=== PATIENT | female | born 1930 | race African-American/Black ===

== ENCOUNTER 2017-02-02 18:16 | Inpatient (IN) | payer OTHER, MEDICARE ==
[~2017-02-02] VITALS: Ht 162.6 cm; Wt 102.0 kg
[2017-02-02 18:20] VITALS: PULSE 96; RESP 20; TEMP 98; O2SAT 95
[2017-02-02 18:28] VITALS: O2SAT 95
[2017-02-02 18:29] VITALS: BP 137/67; PULSE 97
[2017-02-02] MEDS ORDERED: TETANUS/DIPHTHERIA TOXOID ADULT 0.5 ML VIAL IM ONE (18:30)
[2017-02-02] MEDS ORDERED: SODIUM CHLORIDE 0.9% FLUSH 5 ML FLUSH IVF PRN ×2 (18:30→21:00)
--- NOTE | 2017-02-02 18:45 | PD ---
HPI Chief Complaint: Diabetic Time Seen by Provider: 18:24 Travel History International Travel<30 days: No Contact w/Intl Traveler<30days: No Traveled to known affect area: No History of Present Illness HPI The patient is a 86-year-old female who presents to the emergency department via EMS after being found on the floor with right sided weakness and low blood sugar. According to EMS the patient was last seen normal last night, was found on the ground by family earlier today. The patient's initial blood glucose was 35, the patient was administered glucose and her blood sugar improved. However, the patient continued right sided weakness. The patient also notes dysarthria, lower lip swelling, difficulties in her right upper extremity, and generalized weakness. The patient does have a history of diabetes but cannot recall her medications. The patient also cannot recall the name of her primary physician. Family at bedside cannot recall the patient's physician or medications, however, they state the patient has no previous history of CVA. They state the patient is normally able to ambulate without difficulty. The patient does complain of right sided weakness as well as lower lip swelling and dysarthria. She denies any chest pain, shortness breath, nausea, vomiting, or abdominal pain. Symptoms are moderate, no known alleviating or exacerbating factors. PFSH Past Medical History Cardiovascular Problems: Yes (HTN) Diabetes: Yes ?: Not Past Surgical History Hysterectomy: Yes Social History Tobacco Use: No Substance Use: No Allergies-Medications (Allergen,Severity, Reaction): Coded Allergies: No Known Allergies (Unverified , 02/02/17) Reported Meds & Prescriptions Reported Meds & Active Scripts Active Active Prescriptions or Reported Medications Unobtainable Review of Systems Except as stated in HPI: all other systems reviewed are Neg General / Constitutional: No: Fever HENT: No: Headaches, Neck Pain Cardiovascular: No: Chest Pain or Discomfort Respiratory: No: Shortness of Breath Gastrointestinal: No: Nausea, Vomiting, Abdominal Pain Musculoskeletal: Positive: Weakness Neurologic: Positive: Weakness, Focal Abnormalities, Slurred Speech, No: Headache, Paresthesia, Sensory Disturbance Physical Exam Narrative GENERAL: Awake, alert, pleasant 86 year-old female appears her stated age is in no acute respiratory distress. SKIN: Abrasions noted to the knees bilateral is well some bruising to the left hand. HEAD: The patient's lower lip is swollen and edematous with superficial abrasions on the inside.. EYES: Pupils equal and round. Pupils are 3 mm bilateral. EOMs are intact. Patient is able to see fingers at a distance of 2 feet. Right subconjunctival hemorrhage noted. ENT: The lower lip is swollen lips of superficial abrasions on the inside. NECK: Trachea midline. No JVD. CARDIOVASCULAR: Regular rate and rhythm. No murmur appreciated. RESPIRATORY: No accessory muscle use. Clear to auscultation. Breath sounds equal bilaterally. GASTROINTESTINAL: Abdomen soft, non-tender, nondistended. Obese, no rebound tenderness. MUSCULOSKELETAL: Abrasions noted over the inferior aspect of the knees bilateral. Bruising noted over the extensor surface of the left hand. NEUROLOGICAL: Awake and alert. Mild facial asymmetry with smiling. Tongue appears to deviate slightly to the left. Patient is unable to raise her right arm, but is able to make a fist with the right hand limited strength. Patient is able to raise her left arm in extension, but is unable to completely extend at the elbow. Patient is able to flex the knees bilaterally, but is unable to lift her legs off of the ground. Sensation is symmetric in the V2 and V3 distribution bilaterally. Sensation is symmetric down the arms and legs bilaterally. Finger to nose with the left is normal, she is unable to raise her right arm to touch her nose. She is unable to raise her legs off of the bed to do heel to mark. She is oriented to person, place, month, and year. PSYCHIATRIC: Appropriate mood and affect; insight and judgment normal. Data Data Last Documented VS Vital Signs Date Time Temp Pulse Resp B/P Pulse Ox O2 Delivery O2 Flow Rate FiO2 02/02/17 19:29 100 19 147/61 97 Room Air 02/02/17 18:20 98.0 Orders Electrocardiogram (02/02/17 18:24) Prothrombin Time / Inr (Pt) (02/02/17 18:24) Act Partial Throm Time (Ptt) (02/02/17 18:24) Complete Blood Count With Diff (02/02/17 18:24) Comprehensive Metabolic Panel (02/02/17 18:24) Creatine Kinase (Cpk) (02/02/17 18:24) Troponin I (02/02/17 18:24) Urinalysis - C+S If Indicated (02/02/17 18:24) Ct Brain W/O Iv Contrast(Rout) (02/02/17 18:24) Chest, Single Ap (02/02/17 18:24) Ecg Monitoring (02/02/17 18:24) Iv Access Insert/Monitor (02/02/17 18:24) Oximetry (02/02/17 18:24) Blood Glucose (02/02/17 18:24) Sodium Chloride 0.9% Flush (Ns Flush) (02/02/17 18:30) Tetanus/Diphtheria Tox Adult (Tetanus/Di (02/02/17 18:30) Sodium Chlorid 0.9% 500 Ml Inj (Ns 500 M (02/02/17 20:15) Aspirin (Aspirin) (02/02/17 20:30) Admit Order (Ed Use Only) (02/02/17 20:39) Labs Laboratory Tests Test 02/02/17 02/02/17 19:06 19:14 White Blood Count 16.0 TH/MM3 Red Blood Count 4.19 MIL/MM3 Hemoglobin 12.0 GM/DL Hematocrit 37.3 % Mean Corpuscular Volume 89.1 FL Mean Corpuscular Hemoglobin 28.7 PG Mean Corpuscular Hemoglobin 32.3 % Concent Red Cell Distribution Width 13.5 % Platelet Count 130 TH/MM3 Mean Platelet Volume 10.2 FL Neutrophils (%) (Auto) % Lymphocytes (%) (Auto) % Monocytes (%) (Auto) % Eosinophils (%) (Auto) % Basophils (%) (Auto) % Neutrophils # (Auto) TH/MM3 Lymphocytes # (Auto) TH/MM3 Monocytes # (Auto) TH/MM3 Eosinophils # (Auto) TH/MM3 Basophils # (Auto) TH/MM3 CBC Comment AUTO DIFF Differential Total Cells 100 Counted Neutrophils % (Manual) 86 % Band Neutrophils % 7 % Lymphocytes % 2 % Monocytes % 4 % Neutrophils # (Manual) 14.9 TH/MM3 Differential Comment FINAL DIFF MANUAL Atypical Lymphocytes % Platelet Estimate LOW Platelet Morphology Comment NORMAL Prothrombin Time 12.4 SEC Prothromb Time International 1.1 RATIO Ratio Activated Partial 20.5 SEC Thromboplast Time Sodium Level 135 MEQ/L Potassium Level 5.4 MEQ/L Chloride Level 98 MEQ/L Carbon Dioxide Level 23.7 MEQ/L Anion Gap 13 MEQ/L Blood Urea Nitrogen 51 MG/DL Creatinine 2.43 MG/DL Estimat Glomerular Filtration 19 ML/MIN Rate Random Glucose 126 MG/DL Calcium Level 8.3 MG/DL Total Bilirubin 1.6 MG/DL Aspartate Amino Transf 468 U/L (AST/SGOT) Alanine Aminotransferase 65 U/L (ALT/SGPT) Alkaline Phosphatase 71 U/L Troponin I 0.13 NG/ML Total Protein 6.6 GM/DL Albumin 3.4 GM/DL Urine Color YELLOW Urine Turbidity HAZY Urine pH 5.5 Urine Specific [place] 1.019 Urine Protein 100 mg/dL Urine Glucose (UA) NEG mg/dL Urine Ketones NEG mg/dL Urine Occult Blood LARGE Urine Nitrite NEG Urine Bilirubin NEG Urine Urobilinogen LESS THAN 2.0 MG/DL Urine Leukocyte Esterase TRACE Urine RBC LESS THAN 1 /hpf Urine WBC 3 /hpf Urine Squamous Epithelial 2 /hpf Cells Urine Transitional Epithelial <1 /hpf Cells Urine Hyaline Casts 2 /lpf Urine Mucus FEW /lpf Microscopic Urinalysis Comment CATH-CULT NOT IND MDM Medical Decision Making Medical Screen Exam Complete: Yes Emergency Medical Condition: Yes Medical Record Reviewed: Yes Interpretation(s) EKG reveals normal sinus rhythm with a rate in 96. Wavy baseline, further analysis unobtainable. Differential Diagnosis Differential diagnoses includes CVA, TIA, intracranial hemorrhage, hypoglycemia , medication side effect, hyponatremia. Narrative Course IV was established, labs are drawn and sent, and the patient was placed on cardiac telemetry monitoring and continuous pulse oximetry monitoring. EKG was ordered and interpreted. Stat CT the brain was ordered. The patient will be kept nothing by mouth and aspirin will be withheld until CT of the brain results are noted. Patient's Accu-Chek was greater than 150 in the emergency department. Tetanus shot was updated. CT the brain was negative. Accu-Chek 1 hour later was 125. The patient is able to awaken, answer questions, but when reevaluated, still unable to raise her right arm. She denies any pain of the right arm. The patient states she has a physician, however, cannot recall the name. Registration has the patient has self day and no physician. Therefore, the on-call medical service will be paged for admission. The patient was administered aspirin in the emergency department. Physician Communication Physician Communication The on-call medical service was paged for admission. I discussed the patient with Dr. Lopez who agrees with admission. Diagnosis Primary Impression: CVA (cerebral vascular accident) Qualified Code: I63.9 - Cerebrovascular accident (CVA), unspecified mechanism Additional Impression: Hypoglycemia Admitting Information Admitting Physician Requests: Admit Scripts Unable to Obtain Active Prescriptions or Reported Meds Condition: Stable Krish Ding MD Feb 02, 2017 18:45
--- NOTE | 2017-02-02 19:07 | RADRPT ---
EXAM DATE/TIME: 02/02/2017 18:41 [facility] COMPARISON: No previous studies available for comparison. INDICATIONS : Chest pain MEDICAL HISTORY : None. SURGICAL HISTORY : None. ENCOUNTER: Initial ACUITY: 1 day PAIN SCORE: Non-responsive. LOCATION: chest FINDINGS: No infiltrate, effusion or pneumothorax demonstrated. Eventration seen right hemidiaphragm. Heart siz e within normal limits. Mild tortuosity seen of the thoracic aorta. CONCLUSION: No evidence of acute cardiopulmonary disease. Andreas Leong MD on February 02, 2017 at 19:05 Board Certified Radiologist. This report was verified electronically.
[2017-02-02 19:22] LABS: HEMATOCRIT 37.3 % (35.0-46.0); MEAN CELL VOLUME 89.1 FL (80.0-100.0); MEAN CORPUSCULAR HEMOGLOBIN 28.7 PG (27.0-34.0); MEAN CORPUSCULAR HGB CONC 32.3 % (32.0-36.0); PLATELET COUNT 130 TH/MM3 (150-450); RED BLOOD COUNT 4.19 MIL/MM3 (4.00-5.30); RED CELL DISTRIBUTION WIDTH 13.5 % (11.6-17.2)
[2017-02-02 19:23] LABS: HEMO FLAGS AUTO DIFF
[2017-02-02 19:29] VITALS: BP 147/61; PULSE 100; RESP 19; O2SAT 97
[2017-02-02 19:41] LABS: APTT (PATIENT) 20.5 SEC (24.3-30.1); INTERNATIONAL NORMALIZED RATIO 1.1 RATIO; PROTHROMBIN TIME - PATIENT 12.4 SEC (9.8-11.6)
[2017-02-02 19:47] LABS: ANION GAP 13 MEQ/L (5-15); AST (GOT) 468 U/L (15-37); BICARBONATE 23.7 MEQ/L (21.0-32.0); BLOOD UREA NITROGEN 51 MG/DL (7-18); CHLORIDE 98 MEQ/L (98-107); GLOMERULAR FILTRATION RATE 19 ML/MIN (>89); POTASSIUM 5.4 MEQ/L (3.5-5.1); SODIUM (NA) 135 MEQ/L (136-145)
--- NOTE | 2017-02-02 19:53 | RADRPT ---
EXAM DATE/TIME: 02/02/2017 19:33 [facility] COMPARISON: No previous studies available for comparison. INDICATIONS : Right arm weakness and left facial droop. RADIATION DOSE: 56.35 CTDIvol (mGy) MEDICAL HISTORY : Hypertension. Diabetes mellitus type 2. SURGICAL HISTORY : None. ENCOUNTER: Initial ACUITY: 1 day PAIN SCALE: 0/10 LOCATION: cranial TECHNIQUE: Multiple contiguous axial images were obtained of the head. Using automated exposure control and adj ustment of the mA and/or kV according to patient size, radiation dose was kept as low as reasonably a chievable to obtain optimal diagnostic quality images. FINDINGS: CEREBRUM: The ventricles are normal for age. No evidence of midline shift, mass lesion, hemorrhage or acute in farction. No extra-axial fluid collections are seen. POSTERIOR FOSSA: The cerebellum and brainstem are intact. The 4th ventricle is midline. The cerebellopontine angle i s unremarkable. EXTRACRANIAL: The visualized portion of the orbits is intact. Torus palatini incidentally noted. Visualized paranas al sinuses and mastoid air cells are clear. SKULL: The calvaria is intact. No evidence of skull fracture. Incidentally seen diffuse hyperostosis. CONCLUSION: No acute intracranial abnormality demonstrated. Andreas Leong MD on February 02, 2017 at 19:51 Board Certified Radiologist. This report was verified electronically.
[2017-02-02 20:02] LABS: BLOOD, URINE LARGE (NEG); GLUCOSE,URINE NEG (NEG); HYALINE CAST, URINE 2 /lpf (RARE); KETONE, URINE NEG (NEG); MUCUS URINE FEW /lpf (OCC); NITRITE,URINE NEG (NEG); PH, URINE 5.5 (5.0-8.5); SQUAMOUS EPITHELIAL CELL URINE 2 /hpf (0-5); TRANSITIONAL EPI CELLS, URINE <1 /hpf; URINE COLOR YELLOW (YELLW/STRAW)
[2017-02-02 20:03] LABS: COMMENT (UR) CATH-CULT NOT IND; CULTURE IF INDICATED CATH CULTURE NOT IND
[2017-02-02 20:14] LABS: ALKALINE PHOSPHATASE 71 U/L (45-117); ALT (GPT) 65 U/L (10-53); TOTAL BILIRUBIN ADULT 1.6 MG/DL (0.2-1.0)
[2017-02-02] MEDS ORDERED: SODIUM CHLORID 0.9% 500 ML INJ 500 ML IV ONE (20:15)
[2017-02-02 20:24] LABS: POLYS (SEG NEUTROPHILS) 86 % (16-70); WBC DIFF SAMPLE 100
[2017-02-02 20:25] LABS: BANDS 7 % (0-6); NEUTROPHIL # MANUAL DIFF 14.9 TH/MM3 (1.8-7.7); PLATELET ESTIMATE SMEAR LOW (NORMAL); PLATELET MORPHOLOGY NORMAL (NORMAL); SCAN/DIFF FINAL DIFF MANUAL
[2017-02-02] MEDS ORDERED: ASPIRIN 325 MG TAB PO ONE (20:30)
[2017-02-02 20:47] LABS: CREATINE KINASE 19800 U/L (26-192)
[2017-02-02] MEDS ORDERED: SODIUM CHLOR 0.9% 1000 ML INJ 1,000 ML IV SCH (21:00)
[2017-02-02] MEDS ORDERED: DEXTROSE 50% IN WATER 50 ML VIAL(D50) IV PUSH PRN (21:00)
[2017-02-02] MEDS ORDERED: GLUCAGON 1 MG/ML VIAL IM/SQ PRN (21:00)
[2017-02-02 21:30] VITALS: BP 116/58; PULSE 98; RESP 20; O2SAT 98
[2017-02-02] MEDS: SODIUM CHLORIDE 0.9% FLUSH 5 ML FLUSH IVF SCH (21:40)
[2017-02-02 22:12] LABS: AUTOMATED NEUTROPHIL # 13.7 TH/MM3 (1.8-7.7); BASOPHIL # 0.1 TH/MM3 (0-0.2); BASOPHIL % 0.8 % (0.0-2.0); HEMATOCRIT 37.8 % (35.0-46.0); HEMO FLAGS DIFF FINAL; LYMPH % 5.5 % (9.0-44.0); LYMPHOCYTE # 0.9 TH/MM3 (1.0-4.8); MEAN CELL VOLUME 89.7 FL (80.0-100.0); MEAN CORPUSCULAR HEMOGLOBIN 28.4 PG (27.0-34.0); MEAN CORPUSCULAR HGB CONC 31.7 % (32.0-36.0); MONO % 5.9 % (0.0-8.0); NEUT % 87.8 % (16.0-70.0); PLATELET COUNT 119 TH/MM3 (150-450); RED BLOOD COUNT 4.21 MIL/MM3 (4.00-5.30); RED CELL DISTRIBUTION WIDTH 13.7 % (11.6-17.2); WHITE BLOOD COUNT 15.6 TH/MM3 (4.0-11.0)
[2017-02-02 22:44] LABS: HEMOGLOBIN A1b 1.1 %; HEMOGLOBIN Ao 85.1 %; HEMOGLOBIN F 0.9 %; HEMOGLOBIN LA1C 1.8 %; HEMOGLOBIN P3 3.4 %
[2017-02-02 22:49] LABS: ALKALINE PHOSPHATASE 68 U/L (45-117); ALT (GPT) 66 U/L (10-53); ANION GAP 13 MEQ/L (5-15); AST (GOT) 466 U/L (15-37); BICARBONATE 24.5 MEQ/L (21.0-32.0); BLOOD UREA NITROGEN 57 MG/DL (7-18); CHLORIDE 100 MEQ/L (98-107); GLOMERULAR FILTRATION RATE 22 ML/MIN (>89); SODIUM (NA) 137 MEQ/L (136-145); TOTAL BILIRUBIN ADULT 1.4 MG/DL (0.2-1.0)
[2017-02-02 23:19] LABS: CREATINE KINASE 18712 U/L (26-192)
[2017-02-02 23:50] VITALS: PULSE 92
[2017-02-03] VITALS (10 sets, daily range): BP systolic 110–142; BP diastolic 51–64; PULSE 54–95; RESP 16–18; TEMP 97.9–99.4; O2SAT 95–100
[2017-02-03] MEDS ORDERED: DEXT 5%-NACL 0.9% 1000 ML INJ 1,000 ML IV SCH (00:15)
[2017-02-03] MEDS ORDERED: CALCIUM GLUCONATE 10% 1 GM/10 ML VIAL IV PUSH ONE (00:15)
[2017-02-03] MEDS ORDERED: SODIUM POLYSTYRENE SULFONATE SUSP 15 GM/60 ML CUP PO ONE (00:15)
[2017-02-03] MEDS ORDERED: CALCIUM GLUCONATE INJ 1 GM in SODIUM CHLORIDE 0.9% INJ 100 ML IV ONE (01:00)
--- NOTE | 2017-02-03 02:48 | HHI.HP ---
[facility] Unknown Admission Diagnosis CVA with dysarthria, hypoglycemia Diagnoses: Chief Complaint: Fell down Travel History International Travel<30 Days: No Contact w/Intl Traveler <30 Da: No Traveled to Known Affected Are: No History of Present Illness History from patient, ER physician communication, and review of medical records. Patient is an elderly lady who actually lives by herself and is quite independent. She is somewhat of a poor historian only because her speech is quite slurred. However she states that she was just extremely weak and could not stand on her feet because her legs where given out on her. She reports because of that, she was on the ground in her home. She states she scoots herself by putting pressure on her bilateral knees. She states she was just not able to go for to reach the lites in the house. Basically, her family members and found her on the floor. Patient was noted to have extremely slurred speech, with right upper extremity weakness by the EMS. Her blood sugar was also 33 on the scene. Patient reports she is a diabetic. She has just not been eating or drinking well because she has been on the ground. There was also questionable left facial droop with tongue deviation upon initial arrival. Apart from the above, patient denies any recent fever/nausea/vomiting/diarrhea/ urinary burning or pain on urination. She denies any hematemesis/hematochezia/melena/hematuria. Patient reports that her baseline is that she walks with a cane. She states she no longer drives. Her family members usually bring food to her home for her and they do help her with laundry as well. Review of Systems Except as stated in HPI: all other systems reviewed are Neg Past Family Social History Past Medical History Hypertension Diabetes Obesity Recent bladder infection Past Surgical History Hysterectomy Reported Medications Patient's medications listed in EMRreviewed. Allergies: Coded Allergies: No Known Allergies (Unverified , 02/02/17) Family History To denies any family history of any medical issues. Social History Denies smoking/alcohol abuse/drug abuse. Lives by herself. No longer driving. Physical Exam Vital Signs Vital Signs Date Time Temp Pulse Resp B/P Pulse Ox O2 Delivery O2 Flow Rate FiO2 02/03/17 00:00 99.4 91 18 121/54 96 02/02/17 21:30 98 20 116/58 98 Room Air 02/02/17 19:29 100 19 147/61 97 Room Air 02/02/17 18:43 97 18 96 Room Air 02/02/17 18:29 97 137/67 02/02/17 18:28 95 Room Air 02/02/17 18:20 98.0 96 20 95 Physical Exam GENERAL: This is a well-nourished, well-developed patient, in no apparent distress. Significant dysarthria SKIN: No rashes, ecchymoses or lesions. Cool and dry. HEAD: Atraumatic. Normocephalic. No temporal or scalp tenderness. EYES: No scleral icterus. No injection or drainage. ENT: Nose without bleeding, purulent drainage or septal hematoma. Airway patent. NECK: Trachea midline. No JVD CARDIOVASCULAR: Regular rate and rhythm without murmurs, gallops, or rubs. RESPIRATORY: Clear to auscultation. Breath sounds equal bilaterally. No wheezes , rales, or rhonchi. GASTROINTESTINAL: Abdomen soft, non-tender, nondistended. No guarding. MUSCULOSKELETAL: Extremities without clubbing, cyanosis, or edema. No calf tenderness. NEUROLOGICAL: Awake and alert.\Motor and sensory grossly within normal limits. Laboratory Laboratory Tests Test 02/02/17 02/02/17 02/02/17 19:06 19:14 21:40 White Blood Count 16.0 15.6 Red Blood Count 4.19 4.21 Hemoglobin 12.0 12.0 Hematocrit 37.3 37.8 Mean Corpuscular Volume 89.1 89.7 Mean Corpuscular Hemoglobin 28.7 28.4 Mean Corpuscular Hemoglobin 32.3 31.7 Concent Red Cell Distribution Width 13.5 13.7 Platelet Count 130 119 Mean Platelet Volume 10.2 10.0 Neutrophils (%) (Auto) 87.8 Lymphocytes (%) (Auto) 5.5 Monocytes (%) (Auto) 5.9 Eosinophils (%) (Auto) 0.0 Basophils (%) (Auto) 0.8 Neutrophils # (Auto) 13.7 Lymphocytes # (Auto) 0.9 Monocytes # (Auto) 0.9 Eosinophils # (Auto) 0.0 Basophils # (Auto) 0.1 CBC Comment AUTO DIFF DIFF FINAL Differential Total Cells 100 Counted Neutrophils % (Manual) 86 Band Neutrophils % 7 Lymphocytes % 2 Monocytes % 4 Neutrophils # (Manual) 14.9 Differential Comment FINAL DIFF MANUAL Atypical Lymphocytes Platelet Estimate LOW Platelet Morphology Comment NORMAL Prothrombin Time 12.4 Prothromb Time International 1.1 Ratio Activated Partial 20.5 Thromboplast Time Sodium Level 135 137 Potassium Level 5.4 6.0 Chloride Level 98 100 Carbon Dioxide Level 23.7 24.5 Anion Gap 13 13 Blood Urea Nitrogen 51 57 Creatinine 2.43 2.50 Estimat Glomerular Filtration 19 22 Rate Random Glucose 126 103 Hemoglobin A1c 5.8 Calcium Level 8.3 8.2 Total Bilirubin 1.6 1.4 Aspartate Amino Transf 468 466 (AST/SGOT) Alanine Aminotransferase 65 66 (ALT/SGPT) Alkaline Phosphatase 71 68 Total Creatine Kinase 72066 89655 Creatine Kinase MB 70.0 62.0 Creatine Kinase MB % 0.4 0.3 Troponin I 0.13 Total Protein 6.6 6.7 Albumin 3.4 3.3 Lipase 141 Urine Color YELLOW Urine Turbidity HAZY Urine pH 5.5 Urine Specific [place] 1.019 Urine Protein 100 Urine Glucose (UA) NEG Urine Ketones NEG Urine Occult Blood LARGE Urine Nitrite NEG Urine Bilirubin NEG Urine Urobilinogen LESS THAN 2.0 Urine Leukocyte Esterase TRACE Urine RBC LESS THAN 1 Urine WBC 3 Urine Squamous Epithelial 2 Cells Urine Transitional Epithelial <1 Cells Urine Hyaline Casts 2 Urine Mucus FEW Microscopic Urinalysis Comment CATH-CULT NOT IND Result Diagram: 02/02/17213902/02/172139 Imaging Last [address] 02/02/171823 Signed Impressions: Service Date/Time: January 19:33 - CONCLUSION: No acute intracranial abnormality demonstrated. Andreas Leong MD Chest X-Ray 02/02/171823 Signed Impressions: Service Date/Time: January 18:41 - CONCLUSION: No evidence of acute cardiopulmonary disease. Andreas Leong MD Assessment and Plan Problem List: (1) CVA (cerebral vascular accident) ICD Code: I63.9 Status: Acute (2) Hypoglycemia ICD Code: E16.2 Status: Acute (3) Hyperkalemia ICD Code: E87.5 Status: Acute (4) Acute renal failure ICD Code: N17.9 Status: Acute (5) Rhabdomyolysis ICD Code: M62.82 Status: Acute Assessment and Plan Impression: Acute CVA Leukocytosissecondary to hemoconcentration Rhabdomyolysisas patient was on the floor for a while Acute renal failurebaseline unknown. Likely this is acute from dehydration/ rhabdomyolysis. We will repeat and follow renal function. Hyperkalemia in setting of renal failurewill need to aggressively treat. Hypoglycemiaon arrivalsecondary to poor oral intake because of acute illness in a diabetic patient Plan: Permissive hypertension. Head of bed flat flat. Telemetry monitoring. Echocardiogram in a.m. Carotid sono. MRI in the morning. Neurology consult. PT/OT/speech therapy. Start patient on IV fluids with D5 normal saline at 100 cc per hour. Watch for fluid overload. We'll follow renal function for improvement. Follow CPK for improvement of rhabdo. Hypoglycemic protocol. Every hour fingersticks. Continue D5 supplementation. Hold insulin or oral hypoglycemics. Give Kayexalate 30 g by mouth one dose. Calcium gluconate 1 g IV. Secondary to severe hypoglycemia, insulin/dextrose regiment is withheld. We'll repeat chemistry to follow potassium levels and treat with Kayexalate accordingly. DVT prophylaxiswith SCD. GI prophylaxis and pantoprazole IV. Discussed Condition With patient, her nurse, ER MD Physician Certification 2 Midnight Certification Type: Admission for Inpatient Services Order for Inpatient Services The services are ordered in accordance with Medicare regulations or non- Medicare payer requirements, as applicable. In the case of services not specified as inpatient-only, they are appropriately provided as inpatient services in accordance with the 2-midnight benchmark. Estimated LOS (days): 2 days is the estimated time the patient will need to remain in the hospital, assuming treatment plan goals are met and no additional complications. Post-Hospital Plan: Home Problem Qualifiers (1) CVA (cerebral vascular accident): Qualified Code: I63.9 - Cerebrovascular accident (CVA), unspecified mechanism Michel Lopez MD Feb 03, 2017 02:48
[2017-02-03 05:20] LABS: HDL CHOLESTEROL 78.7 MG/DL (40.0-60.0)
[2017-02-03 05:46] LABS: ALKALINE PHOSPHATASE 57 U/L (45-117); ALT (GPT) 59 U/L (10-53); ANION GAP 12 MEQ/L (5-15); AST (GOT) 369 U/L (15-37); BICARBONATE 24.4 MEQ/L (21.0-32.0); BLOOD UREA NITROGEN 57 MG/DL (7-18); CHLORIDE 105 MEQ/L (98-107); CREATINE KINASE 12669 U/L (26-192); GLOMERULAR FILTRATION RATE 25 ML/MIN (>89); POTASSIUM 4.1 MEQ/L (3.5-5.1); SODIUM (NA) 141 MEQ/L (136-145); TOTAL BILIRUBIN ADULT 1.1 MG/DL (0.2-1.0)
[2017-02-03 06:16] LABS: CKMB 35.8 NG/ML (0.5-3.6)
--- NOTE | 2017-02-03 10:13 | RADRPT ---
EXAM DATE/TIME: 02/03/2017 09:35 [facility] COMPARISON: CT BRAIN W/O CONTRAST, February 02, 2017, 19:33. INDICATIONS : Right sided weakness. MEDICAL HISTORY : Hypertension. Diabetes mellitus type 2. SURGICAL HISTORY : Hysterectomy. Rt shoulder ENCOUNTER: Subsequent ACUITY: 2 day PAIN SCORE: 0/10 LOCATION: cranial TECHNIQUE: Multiplanar, multisequence MRI of the brain was performed without contrast. FINDINGS: CEREBRUM: The ventricles are normal for age. No evidence of midline shift, mass lesion, hemorrhage or acute in farction. No extraaxial fluid collections are seen. The pituitary gland and suprasellar cistern are normal in configuration. WHITE MATTER: There are a few small focal areas of increased signal within the cerebral white matter. POSTERIOR FOSSA: The cerebellum and brainstem are intact. The 4th ventricle is midline. The cerebellopontine angle is unremarkable. The cerebellar tonsils are normal in position. DIFFUSION IMAGING: No focal areas of restricted diffusion are seen. No evidence of acute infarction. EXTRACRANIAL: The visualized portions of the orbits and paranasal sinuses are unremarkable. CONCLUSION: No acute abnormality seen. There are a few small focal areas of demyelination in the cerebral white m atter. Andreas Hardin MD on February 03, 2017 at 10:03 Board Certified Radiologist. This report was verified electronically.
--- NOTE | 2017-02-03 12:10 | EC ---
Study Study Date:02/03/2017 STUDY CONCLUSIONS SUMMARY - Procedure narrative: Transthoracic echocardiography. Image quality was poor. Scanning was performed from the parasternal, apical, and subcostal acoustic windows. - Left ventricle: The cavity size was normal. Wall thickness was normal. Systolic function was normal. The estimated ejection fraction was in the range of 55% to 60%. Wall motion was normal; there were no regional wall motion abnormalities. If LV function is below 40, please consider prescribing an ACEI or ARB or document rationale for non-use. PROCEDURE DATA STUDY STATUS: Elective. Procedure: Transthoracic echocardiography. Image quality was poor. Scanning was performed from the parasternal, apical, and subcostal acoustic windows. Study completion: The patient tolerated the procedure well. Transthoracic echocardiography. M-mode, complete 2D, complete spectral Doppler, and color Doppler. Height: Height: 71in. Weight: Weight: 197.6lb. Body mass index: BMI: 27.6kg/m^2. Body surface area: BSA: 2.1m^2. Patient status: Inpatient. CARDIAC ANATOMY LEFT VENTRICLE: The cavity size was normal. Wall thickness was normal. Systolic function was normal. The estimated ejection fraction was in the range of 55% to 60%. Wall motion was normal; there were no regional wall motion abnormalities. AORTIC VALVE: Trileaflet; normal thickness leaflets. Doppler: Transvalvular velocity was within the normal range. There was no stenosis. No regurgitation. Peak gradient: 16mm Hg (S). AORTA: Aortic root: The aortic root was normal in size. MITRAL VALVE: Structurally normal valve. Doppler: Transvalvular velocity was within the normal range. There was no evidence for stenosis. No regurgitation. Valve area by pressure half-time: 3.38cm^2. Indexed valve area by pressure half-time: 1.61cm^2/m^2. Peak gradient: 3mm Hg (D). LEFT ATRIUM: The atrium was normal in size. RIGHT VENTRICLE: The cavity size was normal. Wall thickness was normal. PULMONIC VALVE: Doppler: Transvalvular velocity was within the normal range. There was no evidence for stenosis. No regurgitation. TRICUSPID VALVE: Structurally normal valve. Doppler: Transvalvular velocity was within the normal range. No regurgitation. Peak gradient: 37mm Hg (D). PULMONARY ARTERY: The main pulmonary artery was normal-sized. Systolic pressure was within the normal range. RIGHT ATRIUM: The atrium was normal in size. PERICARDIUM: There was no pericardial effusion. SYSTEMIC VEINS: Inferior vena cava: The vessel was normal in size. Patient weight: 197.6lb _Ejection fraction:_ 65-75% _Fractional shortening:_ 32% up to 5Kg 5-11.5Kg 11.6-22.9Kg 23-45Kg 45-57Kg Aortic Root 7-13 <17 13-22 17-27 17-27 LA diam 6-13 <23 24-38 33-47 37-40 RVID 10-17 7-15 7-15 7-18 8-17 LVIDd 12-22 <32 24-38 33-47 37-40 LVPW 2-4 3-6 5-7 6-8 7-8 IVS 2-4 3-6 5-7 6-8 7-8 BASIC MEASUREMENTS ADULT NORMAL Left ventricle LV internal dimension, ED, chordal *42.5 mm 43-52 level, PLAX LV internal dimension, ES, chordal 28.7 mm 23-38 level, PLAX Fractional shortening, chordal level, 32 % >29 PLAX LV posterior wall thickness, ED 10.2 mm IVS/LVPW ratio, ED 0.99 <1.3 Ventricular septum Septal thickness, ED 10.1 mm Aortic valve Leaflet separation 16 mm 15-26 Left atrium Anterior-posterior dimension 31 mm Anterior-posterior dimension index 1.48 cm/m^2 <2.2 Right ventricle RV internal dimension, ED, PLAX 27.1 mm 19-38 BASIC MEASUREMENTS ADULT NORMAL Aortic valve Leaflet separation 16 mm 15-26 Aorta Root diameter, ED 30 mm 20-37 DOPPLER MEASUREMENTS ADULT NORMAL Aortic valve Peak velocity, S 198 cm/s Peak gradient, S 16 mm Hg Mitral valve Peak E-wave velocity 86.4 cm/s Peak A-wave velocity 125 cm/s Pressure half-time 65 ms Peak gradient, D 3 mm Hg Peak E/A ratio 0.7 Valve area, pressure half-time 3.38 cm^2 Valve area index, pressure half-time 1.61 cm^2/m^2 Tricuspid valve Peak gradient, D 37 mm Hg Maximal inflow velocity 303 cm/s Systemic veins Estimated CVP 10 mm Hg Pulmonic valve Peak velocity, S 122 cm/s LEGEND: Mean values are shown as u=mean value. Asterisk (*) huynh values outside specified normal range. Prepared and signed by William Munoz [id number]
[2017-02-03] MEDS: cefTRIAXone INJ 1,000 MG in SODIUM CHLORIDE 0.9% INJ 100 ML IV SCH (12:26)
--- NOTE | 2017-02-03 13:15 | MB ---
cc: ZHEN ARCHER MD DATE OF CONSULTATION 02/03/2017 REASON FOR CONSULTATION Dysarthria, dysphagia, possible stroke. HISTORY OF PRESENT ILLNESS Ms. Fleming is an 86-year-old -[place] female who lives by herself and uses a cane and is essentially independent. The patient states that she was extremely weak and she could not stand on her feet because legs would give out on her, particularly the right side. Eventually she fell on the ground and was not able to stand up. She was found by family members on the floor. She was noted to have slurred speech and right upper extremity weakness and blood sugar was 33 on the scene. The patient denies headache, double vision, blurred vision, facial numbness, convulsions. REVIEW OF SYSTEMS A 12-point review of systems is negative except for what is stated in the HPI. PAST MEDICAL HISTORY 1. Hypertension 2. Diabetes 3. Obesity 4. Recent bladder infection PAST SURGICAL HISTORY Hysterectomy ALLERGIES No known allergies. FAMILY HISTORY Noncontributory SOCIAL HISTORY Denies alcohol abuse, drug abuse or smoking. Lives by herself. PHYSICAL EXAMINATION GENERAL: A morbidly obese -[place] lady in no apparent distress with apparent slurring of speech. HEENT: Atraumatic, normocephalic. Intact vision, intact hearing, right eye conjunctiva is injected. NECK: Trachea in the midline. No signs of meningeal irritation. CARDIOVASCULAR: Regular rate and rhythm. RESPIRATORY: Clear to auscultation. No wheezes. MUSCULOSKELETAL: Weakness of the right upper extremity greater than right lower extremity, normal in the left side. No deformities. No clubbing, cyanosis or edema. No calf tenderness. NEUROLOGIC: Awake, alert, oriented to time, person and place. Intact naming. Intact repetition, intact comprehension. Notable dysarthria/slurred speech. No dysphagia. Pupils are 3 mm bilaterally equal and symmetrical. Intact external ocular motility. Right facial weakness. No facial numbness. Tongue is dehydrated and dry. Motor examination of right upper extremity shoulder abduction 4-/5, elbow extension 3/5, wrist extension 3/5, right lower extremity hip flexion 3/5, knee extension 2/5, foot dorsiflexion 3/5, left upper and lower extremity are essentially 5/5 with give-way. Reflexes 1+ bilateral upper extremity and bilateral knee. Bilateral ankles are sluggish. Plantar's, the right is mute, left is downgoing. Sensation is intact bilateral and symmetrical to light touch and temperature. [id number] is intact on the left lower extremity, difficult to perform in the right upper extremity and bilateral lower extremity. PSYCHOLOGIC: Intact mood and behavior. No visual hallucination. LABORATORY DATA WBC 16, hemoglobin 12, platelet 130. Sodium 141, BUN 57, creatinine 2.25, BUN and creatinine elevated at 57 and 2.25, calcium is low at 8.1, AST elevated at 369, ALT [place] elevated [place] 59, [place] [address] highly elevated, total protein is low at 5.7. PT 12.4, INR is 1.1. DIAGNOSTIC IMAGING - Head CT scan without contrast did not show any acute intracranial abnormality. - MRI of the brain without contrast with no acute abnormality seen, but there are a few small focal areas of demyelination in the cerebral white matter. DIAGNOSTIC IMPRESSION 1. Acute ischemic stroke left hemisphere - Dysarthria and right-sided hemiparesis, right upper extremity weaker than the right lower extremity and a right facial palsy. 2. Rhabdomyolysis 3. MARIA C 4. Diabetes 5. Hypertension PLAN 1. Neuro checks every four hours 2. Aspirin 81 mg daily next 3. n.p.o. until cleared by speech therapy 4. PT, OT recommendations are appreciated. 5. Telemetry 6. Echo 7. DVT prophylaxis 8. SCD's 9. Treatment of rhabdomyolysis and MARIA C Thank you for the opportunity to participate in the care of your patient. MD LISSETTE Hinojosa/NADIA /12:33 PM /12:47 PM [facility]
--- NOTE | 2017-02-03 13:20 | HHI.PR ---
Subjective Remarks Follow-up acute CVA 02/03/17-patient seen and examined, head CT unremarkable however the patient with right sided weakness. UA positive Objective Vitals Vital Signs Date Time Temp Pulse Resp B/P Pulse Ox O2 Delivery O2 Flow Rate FiO2 02/03/17 12:00 97.9 58 18 118/64 100 02/03/17 10:16 95 Nasal Cannula 2.00 02/03/17 08:00 98.1 54 18 112/54 99 02/03/17 07:00 94 02/03/17 07:00 94 02/03/17 04:00 98.8 54 18 114/51 100 02/03/17 00:00 99.4 91 18 121/54 96 02/02/17 23:50 92 02/02/17 21:30 98 20 116/58 98 Room Air 02/02/17 19:29 100 19 147/61 97 Room Air 02/02/17 18:43 97 18 96 Room Air 02/02/17 18:29 97 137/67 02/02/17 18:28 95 Room Air 02/02/17 18:20 98.0 96 20 95 Result Diagram: 02/02/17 2140 02/03/17 0442 Imaging Last Impressions Head Magnetic Resonance Angiography 02/03/17 0000 Signed Impressions: Service Date/Time: Friday, February 03, 2017 15:05 - CONCLUSION: Normal examination. Andreas Hardin MD Carotid Artery Ultrasound 02/03/17 0000 Signed Impressions: Service Date/Time: Friday, February 03, 2017 11:31 - CONCLUSION: No significant stenosis. Andreas Hardin MD Brain MRI 02/03/17 0000 Signed Impressions: Service Date/Time: Friday, February 03, 2017 09:35 - CONCLUSION: No acute abnormality seen. There are a few small focal areas of demyelination in the cerebral white matter. Andreas Hardin MD Head CT 02/02/171823 Signed Impressions: Service Date/Time: January 19:33 - CONCLUSION: No acute intracranial abnormality demonstrated. Andreas Leong MD Chest X-Ray 02/02/171823 Signed Impressions: Service Date/Time: January 18:41 - CONCLUSION: No evidence of acute cardiopulmonary disease. Andreas Leong MD Objective Remarks GENERAL: NAD with right sided weakness SKIN: Warm and dry. HEAD: Normocephalic. EYES: No scleral icterus. No injection or drainage. NECK: Supple, trachea midline. No JVD or lymphadenopathy. CARDIOVASCULAR: Regular rate and rhythm without murmurs, gallops, or rubs. RESPIRATORY: Breath sounds equal bilaterally. No accessory muscle use. GASTROINTESTINAL: Abdomen soft, non-tender, nondistended. MUSCULOSKELETAL: No cyanosis, or edema. BACK: Nontender without obvious deformity. No CVA tenderness. A/P Problem List: (1) CVA (cerebral vascular accident) ICD Code: I63.9 Status: Acute (2) Hypoglycemia ICD Code: E16.2 Status: Acute (3) Hyperkalemia ICD Code: E87.5 Status: Acute (4) Acute renal failure ICD Code: N17.9 Status: Acute (5) Rhabdomyolysis ICD Code: M62.82 Status: Acute Assessment and Plan Impression: Acute CVA Leukocytosissecondary to hemoconcentration Rhabdomyolysisas patient was on the floor for a while Acute renal failurebaseline unknown. Likely this is acute from dehydration/ rhabdomyolysis. We will repeat and follow renal function. Hyperkalemia in setting of renal failurewill need to aggressively treat. Hypoglycemiaon arrivalsecondary to poor oral intake because of acute illness in a diabetic patient Plan: Permissive hypertension. Head of bed flat flat. Telemetry monitoring. Echocardiogram in a.m. Carotid sono. MRA Neurology consult. PT/OT/speech therapy. IV fluid hydration Neuro consultation pending Problem Qualifiers (1) CVA (cerebral vascular accident): Qualified Code: I63.9 - Cerebrovascular accident (CVA), unspecified mechanism Sher Jones MD Feb 03, 2017 13:20
--- NOTE | 2017-02-03 14:07 | RADRPT ---
EXAM DATE/TIME: 02/03/2017 11:31 [facility] COMPARISON: No previous studies available for comparison. INDICATIONS : Cerebrovascular accident. MEDICAL HISTORY : Hypertension. Diabetes. Bladder infection. Obesity. SURGICAL HISTORY : Hysterectomy. ENCOUNTER: Initial ACUITY: 1 day PAIN SCORE: 0/10 LOCATION: Bilateral neck PEAK SYSTOLIC VELOCITIES (cm/sec): ICA/CCA RATIO: Right: 1.2 Left: 1.1 ICA: Right: 101 Left: 82 CCA: Right: 83 Left: 72 ECA: Right: 66 Left: 41 VERTEBRAL: Right: 73 antegrade Left: 62 antegrade Elevated flow velocities and ICA/CCA ratios have been found to correlate with increased degrees of vessel stenosis, calculated as percentage of diameter relative to a normal segment of distal ICA/CCA FINDINGS: RIGHT CAROTID: No significant stenosis is visualized. The waveforms are within normal limits. LEFT CAROTID: No significant stenosis is visualized. The waveforms are within normal limits. VERTEBRAL ARTERIES: Antegrade flow is seen in both vertebral arteries. MISCELLANEOUS: None. CONCLUSION: No significant stenosis. Andreas Hardin MD on February 03, 2017 at 14:02 Board Certified Radiologist. This report was verified electronically.
--- NOTE | 2017-02-03 15:18 | EKG ---
Date Performed: 02/02/2017 Time Performed: 16:30:17 PTAGE: 86 years EKG: PROBABLE Sinus rhythm LEFT ANTERIOR FASCICULAR BLOCK SIGNIFICANT BASELINE ARTIFACT PROCLUDING ACCURATE INTERPRETATION. CON THERAPIST OCCUPATIONAL REPEAT EKG IF CLINICALLY INDICATED ABNORMAL ECG NO PREVIOUS TRACING DOCTOR: Denisse Lilly Interpretating Date/Time 02/03/2017 15:18:17
--- NOTE | 2017-02-03 15:45 | RADRPT ---
EXAM DATE/TIME: 02/03/2017 15:05 [facility] COMPARISON: MRI BRAIN W/O CONTRAST, February 03, 2017, 9:35. INDICATIONS : Stroke. MEDICAL HISTORY : Hypertension. Diabetes mellitus type 2. SURGICAL HISTORY : Hysterectomy. Right shoulder. ENCOUNTER: Subsequent ACUITY: 2 day PAIN SCORE: 0/10 LOCATION: cranial Please note a normal MRA of the brain does not entirely exclude the possibility of a small aneurysm, nor the possibility of distal intracranial vessel disease. TECHNIQUE: 3D time of flight MRA was performed. Source images, multiplanar STS MIP, and 3D volume MIP reconstru ctions were reviewed. FINDINGS: There is excellent visualization of the major intracranial arteries out to the second-order branch ve ssels. There is no evidence for aneurysm, vessel truncation or stenosis, and no evidence for vascula r malformation. CONCLUSION: Normal examination. Andreas Hardin MD on February 03, 2017 at 15:38 Board Certified Radiologist. This report was verified electronically.
[2017-02-03] MEDS: SODIUM CHLORIDE 0.9% FLUSH 5 ML FLUSH IVF SCH (21:00)
[2017-02-03] MEDS: SODIUM CHLOR 0.9% 1000 ML INJ 1,000 ML IV SCH (22:27)
[2017-02-04] VITALS (8 sets, daily range): BP systolic 107–154; BP diastolic 60–71; PULSE 92–101; RESP 18–20; TEMP 96.9–98.2; O2SAT 98–100
[2017-02-04] MEDS: SODIUM CHLOR 0.9% 1000 ML INJ 1,000 ML IV SCH ×2 (05:57→21:44)
[2017-02-04] MEDS: SODIUM CHLORIDE 0.9% FLUSH 5 ML FLUSH IVF SCH ×2 (09:00→21:00)
[2017-02-04 09:23] LABS: CKMB 14.2 NG/ML (0.5-3.6)
[2017-02-04] MEDS: cefTRIAXone INJ 1,000 MG in SODIUM CHLORIDE 0.9% INJ 100 ML IV SCH (10:40)
--- NOTE | 2017-02-04 10:53 | HHI.PR ---
Subjective Remarks Follow-up acute CVA 02/03/17-patient seen and examined, head CT unremarkable however the patient with right sided weakness. UA positive 02/04/17-patient seen and examined, reports some improvement of right lower extremity however still with right upper extremity weakness. Vitals stable Objective Vitals Vital Signs Date Time Temp Pulse Resp B/P Pulse Ox O2 Delivery O2 Flow Rate FiO2 02/04/17 08:00 97.9 96 18 154/64 98 02/04/17 04:27 98.2 98 18 149/64 99 02/04/17 00:57 98.2 96 18 152/71 99 02/03/17 20:22 98.4 95 18 110/55 99 02/03/17 18:20 99 Nasal Cannula 2.00 02/03/17 18:00 95 02/03/17 16:00 98.1 86 16 142/56 99 02/03/17 12:00 97.9 58 18 118/64 100 I/O 02/03/17 02/03/17 02/03/17 02/04/17 02/04/17 02/04/17 07:00 15:00 23:00 07:00 15:00 23:00 Intake Total 120 ml 120 ml Balance 120 ml 120 ml Intake Oral 120 ml 120 ml # Voids 1 2 3 3 # Bowel Movements 1 1 2 1 Result Diagram: 02/02/17213902/03/172 Imaging Last Impressions Head Magnetic Resonance Angiography 02/03/17 0000 Signed Impressions: Service Date/Time: Friday, February 03, 2017 15:05 - CONCLUSION: Normal examination. Andreas Hardin MD Carotid Artery Ultrasound 02/03/17 0000 Signed Impressions: Service Date/Time: Friday, February 03, 2017 11:31 - CONCLUSION: No significant stenosis. Andreas Hardin MD Brain MRI 02/03/17 0000 Signed Impressions: Service Date/Time: Friday, February 03, 2017 09:35 - CONCLUSION: No acute abnormality seen. There are a few small focal areas of demyelination in the cerebral white matter. Andreas Hardin MD Head CT 02/02/171823 Signed Impressions: Service Date/Time: January 19:33 - CONCLUSION: No acute intracranial abnormality demonstrated. Andreas Leong MD Chest X-Ray 02/02/171823 Signed Impressions: Service Date/Time: January 18:41 - CONCLUSION: No evidence of acute cardiopulmonary disease. Andreas Leong MD Objective Remarks GENERAL: NAD with right sided weakness SKIN: Warm and dry. HEAD: Normocephalic. EYES: No scleral icterus. No injection or drainage. NECK: Supple, trachea midline. No JVD or lymphadenopathy. CARDIOVASCULAR: Regular rate and rhythm without murmurs, gallops, or rubs. RESPIRATORY: Breath sounds equal bilaterally. No accessory muscle use. GASTROINTESTINAL: Abdomen soft, non-tender, nondistended. MUSCULOSKELETAL: No cyanosis, or edema. BACK: Nontender without obvious deformity. No CVA tenderness. A/P Problem List: (1) CVA (cerebral vascular accident) ICD Code: I63.9 Status: Acute (2) Hypoglycemia ICD Code: E16.2 Status: Acute (3) Hyperkalemia ICD Code: E87.5 Status: Acute (4) Acute renal failure ICD Code: N17.9 Status: Acute (5) Rhabdomyolysis ICD Code: M62.82 Status: Acute Assessment and Plan Impression: Acute CVA Leukocytosisimproving Rhabdomyolysisimproving Acute renal failurebaseline unknown. Likely this is acute from dehydration/ rhabdomyolysis. We will repeat and follow renal function. Hyperkalemia-resolved Hypoglycemiaon arrivalsecondary to poor oral intake because of acute illness in a diabetic patient Abnormal UA Plan: Continue Permissive hypertension and Vasotec when necessary PT/OT/speech therapy Appreciate input from neurology Continue with Rocephin Continue with aggressive IV fluid secondary to rhabdomyolysis and monitor CK Bilateral SCDs Problem Qualifiers (1) CVA (cerebral vascular accident): Qualified Code: I63.9 - Cerebrovascular accident (CVA), unspecified mechanism Sher Jones MD Feb 04, 2017 10:53
[2017-02-04] MEDS ORDERED: ONDANSETRON HCL 4 MG/2 ML VIAL IV PRN (11:00)
[2017-02-04] MEDS ORDERED: ACETAMINOPHEN 325 MG TAB PO PRN (11:00)
[2017-02-04] MEDS ORDERED: RESP: ALBUTEROL 2.5 MG/IPRATROPIUM 0.5 MG NEB (PRN) NEB (11:00)
[2017-02-04] MEDS ORDERED: DOCUSATE SODIUM 50 MG/SENNA 8.6 MG TAB PO PRN (11:00)
[2017-02-04] MEDS ORDERED: ALUMINUM/MAGNESIUM/SIMETH 30 ML CUP PO PRN (11:00)
[2017-02-04] MEDS ORDERED: ENALAPRILAT 1.25 MG/ML VIAL IV PUSH PRN (11:00)
[2017-02-05] VITALS (7 sets, daily range): BP systolic 118–140; BP diastolic 62–75; PULSE 91–112; RESP 18–20; TEMP 97.1–98.8; O2SAT 96–100
[2017-02-05] MEDS: SODIUM CHLOR 0.9% 1000 ML INJ 1,000 ML IV SCH ×3 (03:00→19:00)
--- NOTE | 2017-02-05 08:37 | HHI.PR ---
Subjective Remarks Follow-up acute CVA 02/03/17-patient seen and examined, head CT unremarkable however the patient with right sided weakness. UA positive 02/04/17-patient seen and examined, reports some improvement of right lower extremity however still with right upper extremity weakness. Vitals stable 02/05/17-patient seen and examined me afebrile however with hacking cough. Complains of right knee soreness Objective Vitals Vital Signs Date Time Temp Pulse Resp B/P Pulse Ox O2 Delivery O2 Flow Rate FiO2 02/05/17 04:50 98.1 112 20 118/75 96 02/05/17 00:41 98.4 92 20 135/63 100 02/04/17 23:30 92 02/04/17 20:56 98.2 92 20 151/71 99 02/04/17 16:00 96.9 98 18 118/60 100 02/04/17 15:09 99 02/04/17 15:09 99 02/04/17 12:00 97.1 101 18 107/67 99 I/O 02/04/17 02/04/17 02/04/17 02/05/17 02/05/17 02/05/17 07:00 15:00 23:00 07:00 15:00 23:00 Intake Total 120 ml 720 ml 4431 ml Balance 120 ml 720 ml 4431 ml Intake Oral 120 ml 720 ml 480 ml IV Total 3951 ml # Voids 3 3 1 2 1 # Bowel Movements 1 1 1 1 Result Diagram: 02/02/17 2140 02/03/17 0442 Imaging Last Impressions Head Magnetic Resonance Angiography 02/03/17 0000 Signed Impressions: Service Date/Time: Friday, February 03, 2017 15:05 - CONCLUSION: Normal examination. Andreas Hardin MD Carotid Artery Ultrasound 02/03/17 0000 Signed Impressions: Service Date/Time: Friday, February 03, 2017 11:31 - CONCLUSION: No significant stenosis. Andreas Hardin MD Brain MRI 02/03/17 0000 Signed Impressions: Service Date/Time: Friday, February 03, 2017 09:35 - CONCLUSION: No acute abnormality seen. There are a few small focal areas of demyelination in the cerebral white matter. Andreas Hardin MD Head CT 02/02/17 1824 Signed Impressions: Service Date/Time: January 19:33 - CONCLUSION: No acute intracranial abnormality demonstrated. Andreas Leong MD Chest X-Ray 02/02/17 1824 Signed Impressions: Service Date/Time: January 18:41 - CONCLUSION: No evidence of acute cardiopulmonary disease. Andreas Leong MD Objective Remarks GENERAL: NAD with right sided weakness SKIN: Warm and dry. HEAD: Normocephalic. EYES: No scleral icterus. No injection or drainage. NECK: Supple, trachea midline. No JVD or lymphadenopathy. CARDIOVASCULAR: Regular rate and rhythm with II/ GI[place]AR[place] RESPIRATORY: Breath sounds equal bilaterally. No accessory muscle use. GASTROINTESTINAL: Abdomen soft, non-tender, nondistended. MUSCULOSKELETAL: No cyanosis, or edema. BACK: Nontender without obvious deformity. No CVA tenderness. A/P Problem List: (1) CVA (cerebral vascular accident) ICD Code: I63.9 Status: Acute (2) Hypoglycemia ICD Code: E16.2 Status: Acute (3) Hyperkalemia ICD Code: E87.5 Status: Acute (4) Acute renal failure ICD Code: N17.9 Status: Acute (5) Rhabdomyolysis ICD Code: M62.82 Status: Acute Assessment and Plan Impression: Acute CVA Leukocytosisimproving Rhabdomyolysisimproving Acute renal failurebaseline unknown. Likely this is acute from dehydration/ rhabdomyolysis. We will repeat and follow renal function. Hyperkalemia-resolved Hypoglycemiaon arrivalsecondary to poor oral intake because of acute illness in a diabetic patient Abnormal UA-No UTI Plan: d/c Permissive hypertension and Vasotec when necessary PT/OT/speech therapy Appreciate input from neurology d/c Rocephin Continue with aggressive IV fluid secondary to rhabdomyolysis and monitor CK Continue outpatient medications for other chronic medical conditions Bilateral SCDs Problem Qualifiers (1) CVA (cerebral vascular accident): Qualified Code: I63.9 - Cerebrovascular accident (CVA), unspecified mechanism Sher Jones MD Feb 05, 2017 08:37
[2017-02-05] MEDS ORDERED: PADIMATE (CHAPSTICK) 4.5 GM TUBE TOP PRN (08:45)
[2017-02-05 09:34] LABS: BASOPHIL % 0.2 % (0.0-2.0); EOSINOPHIL # 0.1 TH/MM3 (0-0.4); EOSINOPHIL % 0.9 % (0.0-4.0); HEMATOCRIT 31.7 % (35.0-46.0); HEMO FLAGS AUTO DIFF; LYMPH % 13.8 % (9.0-44.0); LYMPHOCYTE # 1.5 TH/MM3 (1.0-4.8); MEAN CELL VOLUME 92.6 FL (80.0-100.0); MEAN CORPUSCULAR HEMOGLOBIN 29.5 PG (27.0-34.0); MEAN CORPUSCULAR HGB CONC 31.9 % (32.0-36.0); MONO % 10.8 % (0.0-8.0); NEUT % 74.3 % (16.0-70.0); PLATELET COUNT 104 TH/MM3 (150-450); RED BLOOD COUNT 3.42 MIL/MM3 (4.00-5.30); RED CELL DISTRIBUTION WIDTH 14.3 % (11.6-17.2); WHITE BLOOD COUNT 10.8 TH/MM3 (4.0-11.0)
[2017-02-05 10:11] LABS: PLATELET ESTIMATE SMEAR LOW (NORMAL); PLATELET MORPHOLOGY NORMAL (NORMAL)
[2017-02-05 10:13] LABS: SCAN/DIFF AUTO DIFF CONFIRMED
[2017-02-05 10:15] LABS: KERATOCYTES OCC (NORMAL)
[2017-02-05 10:45] LABS: BICARBONATE 24.1 MEQ/L (21.0-32.0); POTASSIUM 3.9 MEQ/L (3.5-5.1)
[2017-02-05 11:11] LABS: CKMB 8.8 NG/ML (0.5-3.6)
[2017-02-05] MEDS: SODIUM CHLORIDE 0.9% FLUSH 5 ML FLUSH IVF SCH ×2 (11:18→21:00)
[2017-02-05] MEDS: BACITRACIN TOP OINT 15 GM TUBE TOP SCH ×2 (11:18→22:00)
--- NOTE | 2017-02-05 13:19 | HHI.PR ---
Review/Management Diagnosis - Acute ischemic stroke left hemisphere, not evident on MRI, resolving - Dysarthria and right-sided hemiparesis, right upper extremity weaker than the right lower extremity and a right facial palsy. - Rhabdomyolysis - MARIA C - Diabetes - Hypertension Plan 1. Neuro checks every four hours 2. Aspirin 81 mg daily next 3. PT, OT recommendations are appreciated. 4. Needs placement 5. Treatment of rhabdomyolysis and MARIA C Diagnosis/Plan: Subjective Subjective Comments No acute events reported Patient feels better Neurologic exam has improved No new complaints Active Medications Current Medications Medications (Trade) Dose Ordered Sig/Les Route Start Time Stop Time Status Last Admin (NS Flush) 2 ml BID IVF 02/02/17 21:00 02/05/17 11:18 (NS Flush) 2 ml UNSCH PRN IVF 02/02/17 21:00 (D50w (Vial) Inj) 25 ml UNSCH PRN IV PUSH 02/02/17 21:00 Glucagon 1 mg 1 mg UNSCH PRN IM/SQ 02/02/17 21:00 (NS 1000 ml Inj) 1,000 ml @ 125 mls/hr Q8H IV 02/03/17 11:00 02/05/17 11:17 (Tylenol) 650 mg Q4H PRN PO 02/04/17 11:00 (Zofran Inj) 4 mg Q6H PRN IV 02/04/17 11:00 (Dolores-Colace) 1 tab BID PRN PO 02/04/17 11:00 (Mag-Al Plus Susp Liq) 30 ml Q6H PRN PO 02/04/17 11:00 (Vasotec Inj) 1.25 mg Q6H PRN IV PUSH 02/04/17 11:00 (Baciguent Oint) 1 applic Q12HR TOP 02/05/17 09:00 02/05/17 11:18 (Chapstick) 1 applic UNSCH PRN TOP 02/05/17 08:45 02/05/17 11:18 Allergies Allergies Coded Allergies No Known Allergies (Unverified02/02/17) Exam I&O / VS 02/04/17 02/04/17 02/05/17 15:00 23:00 07:00 Intake Total 720 ml 4431 ml Balance 720 ml 4431 ml Intake Oral 720 ml 480 ml IV Total 3951 ml # Voids 3 1 2 # Bowel Movements 1 1 Vital Signs Date Time Temp Pulse Resp B/P Pulse Ox O2 Delivery O2 Flow Rate FiO2 02/05/17 12:08 97.9 102 20 139/66 97 02/05/17 08:10 101 02/05/17 08:00 98.3 100 18 138/62 97 02/05/17 04:50 98.1 112 20 118/75 96 02/05/17 00:41 98.4 92 20 135/63 100 02/04/17 23:30 92 02/04/17 20:56 98.2 92 20 151/71 99 02/04/17 16:00 96.9 98 18 118/60 100 02/04/17 15:09 99 02/04/17 15:09 99 Exam Comments GENERAL: A morbidly obese -[place] lady in no apparent distress with less prominent slurring of speech. HEENT: Atraumatic, normocephalic. Intact vision, intact hearing NECK: Trachea in the midline. No signs of meningeal irritation. CARDIOVASCULAR: Regular rate and rhythm. RESPIRATORY: Clear to auscultation. No wheezes. MUSCULOSKELETAL: Weakness of the right upper extremity greater than right lower extremity, normal in the left side. No deformities. No clubbing, cyanosis or edema. No calf tenderness. NEUROLOGIC: Awake, alert, oriented to time, person and place. Intact naming. Intact repetition, intact comprehension. Notable dysarthria/slurred speech. No dysphagia. Pupils are 3 mm bilaterally equal and symmetrical. Intact external ocular motility. Right facial weakness. No facial numbness. Tongue is dehydrated and dry. Motor examination of right upper extremity shoulder abduction 4+/5, elbow extension 4-/5, wrist extension4/5, right lower extremity hip flexion 4-/5, knee extension 4-/5, foot dorsiflexion 4-/5, left upper and lower extremity are essentially 5/5 with give-way. Reflexes 1+ bilateral upper extremity and bilateral knee. Bilateral ankles are sluggish. Plantar's, the right is mute, left is downgoing. Sensation is intact bilateral and symmetrical to light touch and temperature. [id number] is intact on the left lower extremity, difficult to perform in the right upper extremity and bilateral lower extremity. PSYCHOLOGIC: Intact mood and behavior. No visual hallucination. Objective Micro and Labs Laboratory Tests Test 02/05/17 08:01 White Blood Count 10.8 Red Blood Count 3.42 Hemoglobin 10.1 Hematocrit 31.7 Mean Corpuscular Volume 92.6 Mean Corpuscular Hemoglobin 29.5 Mean Corpuscular Hemoglobin 31.9 Concent Red Cell Distribution Width 14.3 Platelet Count 104 Mean Platelet Volume 9.4 Neutrophils (%) (Auto) 74.3 Lymphocytes (%) (Auto) 13.8 Monocytes (%) (Auto) 10.8 Eosinophils (%) (Auto) 0.9 Basophils (%) (Auto) 0.2 Neutrophils # (Auto) 8.0 Lymphocytes # (Auto) 1.5 Monocytes # (Auto) 1.2 Eosinophils # (Auto) 0.1 Basophils # (Auto) 0.0 CBC Comment AUTO DIFF Differential Comment AUTO DIFF CONFIRMED Platelet Estimate LOW Platelet Morphology Comment NORMAL Ovalocytes Helmet Cells Acanthocytes Keratocytes OCC Red Cell Morphology Comment Hematology Comments Sodium Level 143 Potassium Level 3.9 Chloride Level 109 Carbon Dioxide Level 24.1 Anion Gap 10 Blood Urea Nitrogen 29 Creatinine 1.14 Estimat Glomerular Filtration 55 Rate Random Glucose 114 Calcium Level 7.6 Total Creatine Kinase 2790 Creatine Kinase MB 8.8 Creatine Kinase MB % 0.3 Manuel Early MD Feb 05, 2017 13:18
[2017-02-05] MEDS ORDERED: FURO20TA PO (18:58)
[2017-02-05] MEDS ORDERED: ATOR10TA15 PO (18:58)
[2017-02-05] MEDS ORDERED: FUROSEMIDE 20 MG TAB PO PRN (22:15)
[2017-02-06] VITALS (9 sets, daily range): BP systolic 122–164; BP diastolic 56–77; PULSE 88–98; RESP 20; TEMP 96.7–98.6; O2SAT 95–100
[2017-02-06] MEDS: SODIUM CHLOR 0.9% 1000 ML INJ 1,000 ML IV SCH ×3 (03:00→23:48)
[2017-02-06 07:44] LABS: BICARBONATE 25.5 MEQ/L (21.0-32.0); POTASSIUM 3.6 MEQ/L (3.5-5.1)
[2017-02-06 08:19] LABS: CKMB 4.9 NG/ML (0.5-3.6)
[2017-02-06] MEDS: SODIUM CHLORIDE 0.9% FLUSH 5 ML FLUSH IVF SCH ×2 (08:44→21:00)
[2017-02-06] MEDS: ATORVASTATIN 10 MG TAB PO SCH (08:44)
[2017-02-06] MEDS: BACITRACIN TOP OINT 15 GM TUBE TOP SCH ×2 (08:44→21:29)
--- NOTE | 2017-02-06 09:12 | HHI.PR ---
Subjective Remarks Follow-up acute CVA 02/03/17-patient seen and examined, head CT unremarkable however the patient with right sided weakness. UA positive 02/04/17-patient seen and examined, reports some improvement of right lower extremity however still with right upper extremity weakness. Vitals stable 02/05/17-patient seen and examined me afebrile however with hacking cough. Complains of right knee soreness 02/06/17-patient seen and examined, complains of congestion but she is currently afebrile Objective Vitals Vital Signs Date Time Temp Pulse Resp B/P Pulse Ox O2 Delivery O2 Flow Rate FiO2 02/06/17 08:00 98.0 95 20 140/65 100 02/06/17 04:00 96.7 88 20 137/58 95 02/06/17 00:50 98 02/06/17 00:00 98.2 98 20 122/56 97 02/05/17 20:00 98.8 97 20 139/71 98 02/05/17 20:00 Nasal Cannula 2.00 02/05/17 16:00 97.1 91 19 140/69 98 02/05/17 12:08 97.9 102 20 139/66 97 I/O 02/05/17 02/05/17 02/05/17 02/06/17 02/06/17 02/06/17 07:00 15:00 23:00 07:00 15:00 23:00 Intake Total 1475 ml 2480 ml 120 ml Balance 1475 ml 2480 ml 120 ml Intake Oral 480 ml 480 ml 120 ml IV Total 995 ml 2000 ml # Voids 2 1 1 2 # Bowel Movements 1 0 2 Result Diagram: 02/05/17 0801 02/06/17 0637 Imaging Last Impressions Head Magnetic Resonance Angiography 02/03/17 0000 Signed Impressions: Service Date/Time: Friday, February 03, 2017 15:05 - CONCLUSION: Normal examination. Andreas Hardin MD Carotid Artery Ultrasound 02/03/17 0000 Signed Impressions: Service Date/Time: Friday, February 03, 2017 11:31 - CONCLUSION: No significant stenosis. Andreas Hardin MD Brain MRI 02/03/17 0000 Signed Impressions: Service Date/Time: Friday, February 03, 2017 09:35 - CONCLUSION: No acute abnormality seen. There are a few small focal areas of demyelination in the cerebral white matter. Andreas Hardin MD Head CT 02/02/171823 Signed Impressions: Service Date/Time: January 19:33 - CONCLUSION: No acute intracranial abnormality demonstrated. Andreas Leong MD Chest X-Ray 02/02/171823 Signed Impressions: Service Date/Time: January 18:41 - CONCLUSION: No evidence of acute cardiopulmonary disease. Andreas Leong MD Objective Remarks GENERAL: NAD with right sided weakness SKIN: Warm and dry. HEAD: Normocephalic. EYES: No scleral icterus. No injection or drainage. NECK: Supple, trachea midline. No JVD or lymphadenopathy. CARDIOVASCULAR: Regular rate and rhythm with II/ GIANCARLO RESPIRATORY: Breath sounds equal bilaterally. No accessory muscle use. GASTROINTESTINAL: Abdomen soft, non-tender, nondistended. MUSCULOSKELETAL: No cyanosis, or edema. BACK: Nontender without obvious deformity. No CVA tenderness. Procedures none A/P Problem List: (1) CVA (cerebral vascular accident) ICD Code: I63.9 Status: Acute (2) Hypoglycemia ICD Code: E16.2 Status: Acute (3) Hyperkalemia ICD Code: E87.5 Status: Acute (4) Acute renal failure ICD Code: N17.9 Status: Acute (5) Rhabdomyolysis ICD Code: M62.82 Status: Acute Assessment and Plan Impression: Acute CVA Leukocytosisimproving Rhabdomyolysisimproving and CK today of 1591 Acute renal failurebaseline unknown. Likely this is acute from dehydration/ rhabdomyolysis. Resolved Hyperkalemia-resolved Hypoglycemiaon arrivalsecondary to poor oral intake because of acute illness in a diabetic patient Abnormal UA-No UTI Plan: s/p Permissive hypertension and Vasotec when necessary PT/OT/speech therapy Appreciate input from neurology s/p Rocephin Continue with aggressive IV fluid secondary to rhabdomyolysis and monitor CK- CK today of 1591 Continue outpatient medications for other chronic medical conditions Bilateral SCDs Problem Qualifiers (1) CVA (cerebral vascular accident): Qualified Code: I63.9 - Cerebrovascular accident (CVA), unspecified mechanism Sher Jones MD Feb 06, 2017 09:12
--- NOTE | 2017-02-06 09:50 | RADRPT ---
EXAM DATE/TIME: 02/06/2017 09:06 [facility] COMPARISON: CHEST SINGLE AP, February 02, 2017, 18:41. INDICATIONS : Shortness of breath. MEDICAL HISTORY : None. SURGICAL HISTORY : None. ENCOUNTER: Subsequent ACUITY: 4 - 6 days PAIN SCORE: 0/10 LOCATION: Bilateral chest FINDINGS: The heart and mediastinal structures are stable. There is elevation of the right hemidiaphragm. The lungs are clear. Degenerative changes are noted throughout the thoracic spine. CONCLUSION: 1. No acute cardiopulmonary disease. 2. Degenerative changes throughout the thoracic spine. 3. Elevation of the right hemidiaphragm. Kemal Santos MD on February 06, 2017 at 9:31 Board Certified Radiologist. This report was verified electronically.
[2017-02-07] VITALS (7 sets, daily range): BP systolic 135–163; BP diastolic 66–81; PULSE 71–107; RESP 17–21; TEMP 95.7–98.9; O2SAT 95–100
[2017-02-07] MEDS: SODIUM CHLOR 0.9% 1000 ML INJ 1,000 ML IV SCH ×2 (03:00→19:00)
[2017-02-07 07:53] LABS: CKMB 3.5 NG/ML (0.5-3.6)
[2017-02-07] MEDS: SODIUM CHLORIDE 0.9% FLUSH 5 ML FLUSH IVF SCH ×2 (08:28→21:00)
[2017-02-07] MEDS: BACITRACIN TOP OINT 15 GM TUBE TOP SCH ×2 (08:28→21:00)
[2017-02-07] MEDS: ATORVASTATIN 10 MG TAB PO SCH (08:28)
--- NOTE | 2017-02-07 10:48 | HHI.PR ---
Subjective Remarks Follow-up acute CVA 02/03/17-patient seen and examined, head CT unremarkable however the patient with right sided weakness. UA positive 02/04/17-patient seen and examined, reports some improvement of right lower extremity however still with right upper extremity weakness. Vitals stable 02/05/17-patient seen and examined me afebrile however with hacking cough. Complains of right knee soreness 02/06/17-patient seen and examined, complains of congestion but she is currently afebrile 02/07/17-patient seen and examined; no complaint today. no chest pain. States she is breathing better Objective Vitals Vital Signs Date Time Temp Pulse Resp B/P Pulse Ox O2 Delivery O2 Flow Rate FiO2 02/07/17 08:00 97.9 91 21 148/77 100 02/07/17 08:00 97 02/07/17 04:00 98.8 92 20 152/66 100 02/07/17 00:00 97.6 90 20 146/75 96 02/06/17 20:00 92 02/06/17 20:00 97.8 92 20 150/77 95 02/06/17 16:01 98.5 90 20 164/60 97 02/06/17 12:00 98.6 95 20 142/71 97 02/06/17 11:13 97 Nasal Cannula 2.00 I/O 02/06/17 02/06/17 02/06/17 02/07/17 02/07/17 02/07/17 07:00 15:00 23:00 07:00 15:00 23:00 Intake Total 120 ml 240 ml 720 ml 240 ml Balance 120 ml 240 ml 720 ml 240 ml Intake Oral 120 ml 240 ml 720 ml 240 ml # Voids 2 1 1 1 # Bowel Movements 2 1 Result Diagram: 02/05/17 0801 02/06/17 0637 Imaging Last Impressions Chest X-Ray 02/06/17 0000 Signed Impressions: Service Date/Time: Monday, February 06, 2017 09:06 - CONCLUSION: 1. No acute cardiopulmonary disease. 2. Degenerative changes throughout the thoracic spine. 3. Elevation of the right hemidiaphragm. Kemal Santos MD Head Magnetic Resonance Angiography 02/03/17 0000 Signed Impressions: Service Date/Time: Friday, February 03, 2017 15:05 - CONCLUSION: Normal examination. Andreas Hardin MD Carotid Artery Ultrasound 02/03/17 0000 Signed Impressions: Service Date/Time: Friday, February 03, 2017 11:31 - CONCLUSION: No significant stenosis. Andreas Hardin MD Brain MRI 02/03/17 0000 Signed Impressions: Service Date/Time: Friday, February 03, 2017 09:35 - CONCLUSION: No acute abnormality seen. There are a few small focal areas of demyelination in the cerebral white matter. Andreas Hardin MD Head CT 02/02/17 1824 Signed Impressions: Service Date/Time: January 19:33 - CONCLUSION: No acute intracranial abnormality demonstrated. Andreas Leong MD Objective Remarks GENERAL: NAD with right sided weakness SKIN: Warm and dry. HEAD: Normocephalic. EYES: No scleral icterus. No injection or drainage. NECK: Supple, trachea midline. No JVD or lymphadenopathy. CARDIOVASCULAR: Regular rate and rhythm with II/ GIANCARLO RESPIRATORY: Breath sounds equal bilaterally. No accessory muscle use. GASTROINTESTINAL: Abdomen soft, non-tender, nondistended. MUSCULOSKELETAL: No cyanosis, or edema. BACK: Nontender without obvious deformity. No CVA tenderness. Procedures none A/P Problem List: (1) CVA (cerebral vascular accident) ICD Code: I63.9 Status: Acute (2) Hypoglycemia ICD Code: E16.2 Status: Acute (3) Hyperkalemia ICD Code: E87.5 Status: Acute (4) Acute renal failure ICD Code: N17.9 Status: Acute (5) Rhabdomyolysis ICD Code: M62.82 Status: Acute Assessment and Plan Impression: Acute CVA LeukocytosisResolved Rhabdomyolysisimproving and CK today of 800+ Acute renal failurebaseline unknown. Likely this is acute from dehydration/ rhabdomyolysis. Resolved Hyperkalemia-resolved Hypoglycemiaon arrivalsecondary to poor oral intake because of acute illness in a diabetic patient Abnormal UA-No UTI Plan: s/p Permissive hypertension and Vasotec when necessary PT/OT/speech therapy Appreciate input from neurology s/p Rocephin Continue with aggressive IV fluid secondary to rhabdomyolysis and monitor CK- CK today of 800+ Continue outpatient medications for other chronic medical conditions Bilateral SCDs Problem Qualifiers (1) CVA (cerebral vascular accident): Qualified Code: I63.9 - Cerebrovascular accident (CVA), unspecified mechanism Sher Jones MD Feb 07, 2017 10:47
[2017-02-08] VITALS: BP 144/71; PULSE 72; RESP 20; TEMP 98.3; O2SAT 98
[2017-02-08] MEDS: SODIUM CHLOR 0.9% 1000 ML INJ 1,000 ML IV SCH (03:00)
[2017-02-08 04:00] VITALS: BP 146/72; PULSE 95; RESP 20; TEMP 98.9; O2SAT 93
[2017-02-08 07:18] LABS: BICARBONATE 32.8 MEQ/L (21.0-32.0); POTASSIUM 3.4 MEQ/L (3.5-5.1)
[2017-02-08 07:51] LABS: CKMB 2.4 NG/ML (0.5-3.6)
[2017-02-08 08:00] VITALS: PULSE 91; RESP 18; TEMP 96.4; O2SAT 97
--- NOTE | 2017-02-08 08:42 | HHI.PR ---
Subjective Remarks Follow-up acute CVA 02/03/17-patient seen and examined, head CT unremarkable however the patient with right sided weakness. UA positive 02/04/17-patient seen and examined, reports some improvement of right lower extremity however still with right upper extremity weakness. Vitals stable 02/05/17-patient seen and examined me afebrile however with hacking cough. Complains of right knee soreness 02/06/17-patient seen and examined, complains of congestion but she is currently afebrile 02/07/17-patient seen and examined; no complaint today. no chest pain. States she is breathing better 02/08/17-patient seen and examined; afebrile, and plans of bilateral knee soreness otherwise no other issues. Objective Vitals Vital Signs Date Time Temp Pulse Resp B/P Pulse Ox O2 Delivery O2 Flow Rate FiO2 02/08/17 04:00 98.9 95 20 146/72 93 02/08/17 00:00 98.3 72 20 144/71 98 02/07/17 20:00 98.9 71 20 154/73 95 02/07/17 19:00 106 02/07/17 16:00 95.7 89 17 163/68 95 02/07/17 12:00 97.1 107 21 135/81 98 I/O 02/07/17 02/07/17 02/07/17 02/08/17 02/08/17 02/08/17 06:59 14:59 22:59 06:59 14:59 22:59 Intake Total 240 ml 240 ml 700 ml Balance 240 ml 240 ml 700 ml Intake Oral 240 ml 240 ml 400 ml IV Total 300 ml # Voids 1 1 1 4 # Bowel Movements 1 1 Result Diagram: 02/05/17 0801 02/08/17 0615 Objective Remarks GENERAL: NAD with right sided weakness SKIN: Warm and dry. HEAD: Normocephalic. EYES: No scleral icterus. No injection or drainage. NECK: Supple, trachea midline. No JVD or lymphadenopathy. CARDIOVASCULAR: Regular rate and rhythm with II/ GIANCARLO RESPIRATORY: Breath sounds equal bilaterally. No accessory muscle use. GASTROINTESTINAL: Abdomen soft, non-tender, nondistended. MUSCULOSKELETAL: No cyanosis, or edema. BACK: Nontender without obvious deformity. No CVA tenderness. Procedures none A/P Problem List: (1) CVA (cerebral vascular accident) ICD Code: I63.9 Status: Acute (2) Hypoglycemia ICD Code: E16.2 Status: Acute (3) Hyperkalemia ICD Code: E87.5 Status: Acute (4) Acute renal failure ICD Code: N17.9 Status: Acute (5) Rhabdomyolysis ICD Code: M62.82 Status: Acute Assessment and Plan Impression: Acute CVA LeukocytosisResolved Rhabdomyolysisimproving and CK today of 522 Acute renal failurebaseline unknown. Likely this was acute from dehydration/ rhabdomyolysis. Resolved Hyperkalemia-resolved Hypokalemia- Hypoglycemiaon arrivalsecondary to poor oral intake because of acute illness in a diabetic patient Abnormal UA-No UTI Plan: s/p Permissive hypertension and Vasotec when necessary PT/OT/speech therapy Appreciate input from neurology s/p Rocephin D/c IV fluid secondary to rhabdomyolysis and monitor CK- CK today of 522 Give potassium 60 mEq today 02/08/17 monitor K Continue outpatient medications for other chronic medical conditions Bilateral SCDs Problem Qualifiers (1) CVA (cerebral vascular accident): Qualified Code: I63.9 - Cerebrovascular accident (CVA), unspecified mechanism Sher Jones MD Feb 08, 2017 08:42
[2017-02-08] MEDS ORDERED: POTASSIUM CHLORIDE 10 MEQ CONTROLLED RELEASE TAB PO ONE (08:45)
[2017-02-08] MEDS: SODIUM CHLORIDE 0.9% FLUSH 5 ML FLUSH IVF SCH (09:00)
[2017-02-08] MEDS: BACITRACIN TOP OINT 15 GM TUBE TOP SCH (09:00)
[2017-02-08] MEDS: ATORVASTATIN 10 MG TAB PO SCH (09:00)
[2017-02-08 09:20] VITALS: O2SAT 92
[2017-02-08] MEDS ORDERED: BACI500O2 TOP (11:55)
[2017-02-08] MEDS ORDERED: POTA10CA PO (11:55)
[2017-02-08] MEDS ORDERED: ACET325T PO (11:55)
[2017-02-08] MEDS ORDERED: ASPI81TA11 PO (11:57)
--- NOTE | 2017-02-08 11:59 | HHI.DS ---
Discharge Summary Admission Date Feb 02, 2017 at 20:40 Discharge Date: Feb 08, 2017 Admitting Diagnosis CVA with dysarthria, hypoglycemia (1) CVA (cerebral vascular accident) ICD Code: I63.9 (2) Hypoglycemia ICD Code: E16.2 (3) Hyperkalemia ICD Code: E87.5 (4) Acute renal failure ICD Code: N17.9 (5) Rhabdomyolysis ICD Code: M62.82 Procedures none Brief History - From Admission History from patient, ER physician communication, and review of medical records. Patient is an elderly lady who actually lives by herself and is quite independent. She is somewhat of a poor historian only because her speech is quite slurred. However she states that she was just extremely weak and could not stand on her feet because her legs where given out on her. She reports because of that, she was on the ground in her home. She states she scoots herself by putting pressure on her bilateral knees. She states she was just not able to go for to reach the lites in the house. Basically, her family members and found her on the floor. Patient was noted to have extremely slurred speech, with right upper extremity weakness by the EMS. Her blood sugar was also 33 on the scene. Patient reports she is a diabetic. She has just not been eating or drinking well because she has been on the ground. There was also questionable left facial droop with tongue deviation upon initial arrival. Apart from the above, patient denies any recent fever/nausea/vomiting/diarrhea/ urinary burning or pain on urination. She denies any hematemesis/hematochezia/melena/hematuria. Patient reports that her baseline is that she walks with a cane. She states she no longer drives. Her family members usually bring food to her home for her and they do help her with laundry as well. CBC/BMP: 02/05/17 0801 02/08/17 0615 Significant Findings Laboratory Tests Test 02/06/17 02/07/17 02/08/17 06:37 06:50 06:15 Chloride Level 109 MEQ/L (98-107) Estimat Glomerular Filtration 67 ML/MIN (>89) 74 ML/MIN (>89) Rate Random Glucose 123 MG/DL 127 MG/DL (74-106) (74-106) Calcium Level 8.0 MG/DL 7.9 MG/DL (8.5-10.1) (8.5-10.1) Total Creatine Kinase 1561 U/L 860 U/L 522 U/L (26-192) (26-192) (26-192) Creatine Kinase MB 4.9 NG/ML (0.5-3.6) Potassium Level 3.4 MEQ/L (3.5-5.1) Carbon Dioxide Level 32.8 MEQ/L (21.0-32.0) Imaging Last Impressions Chest X-Ray 02/06/17 0000 Signed Impressions: Service Date/Time: Monday, February 06, 2017 09:06 - CONCLUSION: 1. No acute cardiopulmonary disease. 2. Degenerative changes throughout the thoracic spine. 3. Elevation of the right hemidiaphragm. Kemal Santos MD Head Magnetic Resonance Angiography 02/03/17 0000 Signed Impressions: Service Date/Time: Friday, February 03, 2017 15:05 - CONCLUSION: Normal examination. Andreas Hardin MD Carotid Artery Ultrasound 02/03/17 0000 Signed Impressions: Service Date/Time: Friday, February 03, 2017 11:31 - CONCLUSION: No significant stenosis. Andreas Hardin MD Brain MRI 02/03/17 0000 Signed Impressions: Service Date/Time: Friday, February 03, 2017 09:35 - CONCLUSION: No acute abnormality seen. There are a few small focal areas of demyelination in the cerebral white matter. Andreas Hardin MD Head CT 02/02/17 1824 Signed Impressions: Service Date/Time: January 19:33 - CONCLUSION: No acute intracranial abnormality demonstrated. Andreas Leong MD PE at Discharge GENERAL: NAD with right sided weakness SKIN: Warm and dry. HEAD: Normocephalic. EYES: No scleral icterus. No injection or drainage. NECK: Supple, trachea midline. No JVD or lymphadenopathy. CARDIOVASCULAR: Regular rate and rhythm with II/ GIANCARLO RESPIRATORY: Breath sounds equal bilaterally. No accessory muscle use. GASTROINTESTINAL: Abdomen soft, non-tender, nondistended. MUSCULOSKELETAL: No cyanosis, or edema. BACK: Nontender without obvious deformity. No CVA tenderness. Hospital Course Acute CVA/TIA; Appreciated input from Neurology. ASA/Lipitor. PT/OT/speech therapy to treat LeukocytosisResolved Rhabdomyolysisimproving and CK today of 522 Acute renal failurebaseline unknown. Likely this was acute from dehydration/ rhabdomyolysis. Resolved s/p IV hydration Hyperkalemia-resolved Hypokalemia-Replaced electrolyte Hypoglycemiaon arrivalsecondary to poor oral intake because of acute illness in a diabetic patient-Resolved Abnormal UA-No UTI and IV abx was discontinued Continue outpatient medications for other chronic medical conditions Bilateral SCDs Pt Condition on Discharge: Fair Discharge Disposition: Discharge to SNF Discharge Time: > 30 minutes Discharge Instructions DIET: Follow Instructions for: Heart Healthy Diet Activities you can perform: Regular-No Restrictions Follow up Referrals: PCP Follow-up - 2-3 Days New Medications: Aspirin DR (Aspirin EC) 81 Mg Tabdr 81 MG PO DAILY Prevent Blood Clot #30 Ref 0 TAB Potassium Chloride ER (Potassium Chloride ER) 10 Meq Cap 10 MEQ PO DAILY Electrolyte Replacement #30 Ref 0 CAP Acetaminophen (Acetaminophen) 325 Mg Tab 650 MG PO Q4H PRN Temp > 100.4 #20 TAB Bacitracin Topical (Bacitracin Topical) 500 Unit/Gm Oint 1 APPLIC TOP Q12HR Infection #1 TUBE Continued Medications: Atorvastatin (Atorvastatin) 10 Mg Tab 10 MG PO DAILY #30 Ref 0 TAB Furosemide (Furosemide) 20 Mg Tab 20 MG PO DAILY PRN SEE LABEL COMMENTS #30 Ref 0 TAB Sher Jones MD Feb 08, 2017 11:59
[2017-02-08 12:00] VITALS: BP 177/79; PULSE 81; RESP 18; TEMP 98.3; O2SAT 98
== END 2017-02-08 15:20 | DRG 65 ==
LOC: NEPA 18:16 → NEDA 20:40 → N05B 22:22
PROVIDERS: ADMIT Hospitalist; ATTEND Hospitalist
DX: I63.9 Cerebral infarction, unspecified (principal); N17.9 Acute kidney failure, unspecified; E11.649 Type 2 diabetes mellitus with hypoglycemia without coma; M62.82 Rhabdomyolysis; G81.91 Hemiplegia, unspecified affecting right dominant side; E87.5 Hyperkalemia; R47.1 Dysarthria and anarthria; R29.810 Facial weakness; I10 Essential (primary) hypertension; E66.9 Obesity, unspecified; Z68.38 Body mass index [BMI] 38.0-38.9, adult; E87.6 Hypokalemia; G51.0 Bell's palsy; R82.90 Unspecified abnormal findings in urine; R05 Cough
CPT/HCPCS: 70450; 70544; 70551; 71010; 76937; 80048; 80053; 80061; 81001; 82550; 82552; 82948; 83036; 83690; 84484; 85007; 85025; 85027; 85610; 85730; 90471; 90714; 93005; 93306; 93880; J0610; J0696; J7030; J7040; J7042